=== PATIENT | female | born 1955 | race Caucasian/White ===

== ENCOUNTER 2018-11-19 10:43 | Day surgery (SDC) | payer OTHER ==
[2018-11-19] VITALS (23 sets, daily range): BP systolic 121–153; BP diastolic 54–70; PULSE 66–80; RESP 8–18; Ht 157.5 cm; Wt 80.3 kg
[~2018-11-19] VITALS: Ht 157.5 cm; Wt 80.3 kg
--- NOTE | 2018-11-19 06:11 | HPN ---
Date/Time of Note Date/Time of Note DATE: 11/19/18 TIME: 06:11 Interval H&P Admission Note Pt. seen H&P reviewed: No system changes JOSEPH MCNEIL MD November 19, 2018 06:11
--- NOTE | 2018-11-19 06:14 | OPR ---
Date/Time of Note Date/Time of Note DATE: 11/19/18 TIME: 06:11 Operative Report Procedure Date: November 19, 2018 Preoperative Diagnosis Right shoulder rotator cuff tear Postoperative Diagnosis 1. Right shoulder rotator cuff tear 2. Right shoulder acromioclavicular joint arthritis 3. Right shoulder impingement 4. Right shoulder labral tear with partial biceps tendon tear Operation/Procedure Performed 1. Right shoulder arthroscopic rotator cuff repair 2. Right shoulder arthroscopic distal clavicular excision 3. Right shoulder arthroscopic acromioplasty with coracoacromial ligament release 4. Right shoulder arthroscopic extensive debridement of glenohumeral joint Surgeon see signature line Dish Cloth Inspector Yevgeniy Katz MD Anesthesia Type: general Estimated Blood Loss: 0 - 10 ml's Transfusion none Specimen None Grafts/Implants See operative note Complications none Pt Condition Post Procedure: stable Disposition: PACU Procedure Description INSOLE AND HEEL STIFFENER SURGEON: Yevgeniy Katz MD was asked to be present at my request as a result of the complexity associated with this procedure including positioning of the extremities, manipulation of the arthroscope and assistance with suture management and implantation of suture anchors. In my opinion, the assistance offered by a instructor adjunct surgical technician is insufficient and Dr. Katz should be compensated for his time. PROCEDURE IN DETAIL: Following the administration of general anesthesia supplemented with a peripheral nerve block for postoperative pain control, the patient was examined under anesthesia. Examination of the right shoulder revealed significant stiffness with about 130 degrees of forward flexion and 80 degrees abduction. A gentle manipulation was then undertaken and passively she was able to be flexed up to about 150 degrees, abduction 110 degrees, external rotation 80 degrees and internal rotation 20 degrees. Several significant adhesions were noted to be released. The patient was then placed in the left lateral decubitus position. Sterile prep and drape was then undertaken of the right shoulder. Anterior and posterior glenohumeral portals were established. Glenohumeral arthroscopy revealed that the humeral and glenoid articular cartilage revealed some diffuse grade 2 changes and in the central portion of t he humerus there were grade 3 cartilage changes in an area measuring 2 x 2 cm. There was some mild softening in a generalized fashion.. The superior labrum was diffusely torn with extensive fraying that extended from 9:00 to the 3 o'clock position. The biceps had severe synovitis with subluxation and significant fraying. In addition, the biceps anchor was detached completely. The subscapularis was visualized and this was all with a solid attachment. No abnormalities are noted anteriorly with the exception of the severe synovitis which was actually in the notch itself. Further evaluation of the supraspinatus revealed complete tear of the supraspinatus measuring 1 x 2 cm. Some significant frayed tissue was also noted. Infraspinatus was normal. The superior labrum then debrided extensively from the 9:00 to the 3 o'clock position was undertaken down to stable tissue. Severe synovitis was also debrided down to stable tissue. The biceps tendon was also released and seen to retract. The severe synovitis in the anterior compartment was then debrided. The subacromial space was then entered and very severe bursal reactive tissue was noted. There was a thickened coracoacromial ligament, with a 5 to 7 mm acromial prominence noted, which extended medially as well into the acromioclavicular joint. The anterior acromion was then cleared of soft tissue and the coracoacromial ligament released. The acromion was then resected approximately 5 to 7 mm down to a flat surface. The outer surface of the rotator cuff was then inspected. The rotator cuff tear was noted to be complete and a debridement of this area was undertaken down to stable tissue in order to prepare for the repair. The subacromial space was then further evaluated medially. The acromioclavicular joint was then skeletonized and a significant inferior osteophyte was noted. The AC joint capsule was then opened and the distal clavicle was skeletonized for a distance of 10 mm. The nayely was then inserted and 10 mm of the distal clavicle were then excised. The rotator cuff repair was then undertaken. Specifically, a 5 mm, triple loaded titanium anchor was then inserted into the tuberosity. The sutures were then passed in a mattress fashion and tied using sliding, locking knots. A solid repair of the rotator cuff was completed. The joint was then thoroughly irrigated bony debris removed, the deep tissues were approximated using 4-0 Monocryl, followed by a sterile dressing. A sling was then applied. The patient was awakened and transported to the recovery room in stable condition. JOSEPH MCNEIL MD November 19, 2018 06:14
--- NOTE | 2018-11-19 11:18 | PREAC ---
Date/Time of Note Date/Time of Note DATE: 11/19/18 TIME: 11:17 Anesthesia Eval and Record Evaluation Time Pre-Procedure Interview DATE: 11/19/18 TIME: 11:17 Age 63 Sex female NPO: 8 hrs Preoperative diagnosis Right Shoulder Rotator Cuff Tear Planned procedure Right Shoulder Arthroscopy and Rotator Cuff repair Past Medical History Past Medical History: None Surgery & Anesthesia Issues No known issue Meds Anticoagulation: No Beta Jah within 24 hr: No Reason Beta Jah not given: Pt. not on B-Jah Current Medications Cefazolin Sodium/ Dextrose 50 ml @ 100 mls/hr PRE-OP ONCE IVPB ; Start 11/18/18 at 06:00; Stop 11/18/18 at 06:29; Status UNV Gabapentin (Neurontin) 300 mg PRE-OP ONCE PO ; Start 11/18/18 at 06:00; Stop 11/18/18 at 06:01; Status UNV Tranexamic Acid 100 ml @ 200 mls/hr Pre-op ONCE IVPB ; Start 11/18/18 at 06:00; Stop 11/18/18 at 06:29; Status UNV Dexamethasone (Decadron) 2 mg ONCE ONCE PO ; Start 11/18/18 at 06:00; Stop 11/18/18 at 06:01; Status UNV Meds reviewed: Yes Allergies Allergies Reviewed: Yes Labs/Studies Labs Reviewed: Reviewed by anesthesiologist test: N/A Studies: ECG (n/a), CXR (n/a) Pre-procedure Exam Airway: Adequate mouth opening, Adequate thyromental dist Mallampati: Mallampati II Teeth: Normal Lung: Normal Heart: Normal ASA Physical Status ASA physical status: 2 Emergency: None Planned Anesthetic General/MAC: ETT Nerve block: Brachial plexus (right) Planned Pain Management Single shot nerve block, Parenteral pain med Pre-operative Attestations Prior to commencing anesthesia and surgery, the patient was re-evaluated, there was verification of: *The patient's identity *The results of appropriate recent lab work and preoperative vital signs *The above evaluation not changing prior to induction *Anesthetic plan, risk benefits, alternative and complications discussed with patient/family; questions answered; patient/family understands, accepts and wi shes to proceed. JEREMIAS UP MD November 19, 2018 11:18
[2018-11-19] MEDS ORDERED: PROPOFOL 20 ML ONE (11:20)
[2018-11-19] MEDS ORDERED: FENTAnyl 50 MCG/ML VIAL ONE ×2 (11:20→14:19)
[2018-11-19] MEDS ORDERED: MIDAZOLAM 1 MG/ML 2 ML INJ ONE (11:20)
[2018-11-19] MEDS ORDERED: ROCURONIUM 50 MG INJ ONE (11:20)
[2018-11-19] MEDS ORDERED: ROPIVACAINE 0.5 % 30 ML VIAL ONE (11:20)
[2018-11-19] MEDS ORDERED: MEPERIDINE 25 MG INJ IV PRN (11:30)
[2018-11-19] MEDS ORDERED: OXYCODONE/ACETAMINOPHEN (5/325) TAB PO PRN (11:30)
[2018-11-19] MEDS ORDERED: LABETALOL HCL 20MG INJ IV PRN (11:30)
[2018-11-19] MEDS ORDERED: METOCLOPRAMIDE 10 MG INJ IV PRN (11:30)
[2018-11-19] MEDS ORDERED: ONDANSETRON 4 MG INJ IV PRN (11:30)
[2018-11-19] MEDS ORDERED: HYDROmorphONE 1 MG/5 ML IV SYRINGE IV PRN ×3 (11:30)
[2018-11-19] MEDS ORDERED: FENTAnyl 50 MCG/ML VIAL IV PRN ×3 (11:30)
[2018-11-19] MEDS ORDERED: EPHEDrine 25 MG/5 ML SYG IV PRN (11:30)
[2018-11-19] MEDS ORDERED: METH10TA5 PO (11:31)
[2018-11-19] MEDS ORDERED: METF500T24 PO (11:32)
[2018-11-19] MEDS ORDERED: ATOR40TA68 PO (11:32)
[2018-11-19] MEDS ORDERED: NOVO7030 SC (11:34)
[2018-11-19] MEDS ORDERED: TRANEXAMIC ACID 1GM/100ML(PMX) 100 ML IVPB ONE (12:00)
[2018-11-19] MEDS ORDERED: DEXAMETHASONE 2 MG TAB PO ONE (12:00)
[2018-11-19] MEDS ORDERED: CEFAZOLIN 2 GM/50 ML (PMX) 50 ML IVPB ONE (12:00)
[2018-11-19] MEDS ORDERED: GABAPENTIN 300 MG CAP PO ONE (12:00)
[2018-11-19] MEDS ORDERED: DIPHENHYDRAMINE 50 MG INJ ONE (12:53)
[2018-11-19] MEDS ORDERED: LABETALOL HCL 20MG INJ ONE (12:53)
[2018-11-19] MEDS ORDERED: ONDANSETRON 4 MG INJ ONE (12:59)
[2018-11-19] MEDS ORDERED: DEXAMETHASONE 4 MG/ML 5 ML INJ ONE (12:59)
[2018-11-19] MEDS ORDERED: METOCLOPRAMIDE 10 MG INJ ONE (12:59)
[2018-11-19] MEDS ORDERED: KETOROLAC 30 MG INJ ONE (12:59)
[2018-11-19] MEDS ORDERED: SUGAMMADEX SODIUM 200 MG/2 ML VIAL IV ONE (14:10)
--- NOTE | 2018-11-19 14:24 | PDOCDIS ---
Discharge Instructions DIAGNOSIS Discharge Diagnosis Rotator cuff tear CONDITION [id number] Patient Condition: [id number] Good HOME CARE INSTRUCTIONS: [id number] Diet Instructions: [id number] Regular ACTIVITY: [id number] Activity Restrictions: [id number] Rest between Activity Keep Limb Elevated [id number] Bathing Restrictions: [id number] Shower FOLLOW UP/APPOINTMENTS Follow-up Plan 2 weeks in the office SCHOOL/WORK RELEASE May return to School/Work with: With Restrictions School/Work Release Comment: 5 pound tabletop usage for 6 weeks JOSEPH MCNEIL MD November 19, 2018 14:24
--- NOTE | 2018-11-19 14:29 | PAC ---
Date/Time of Note Date/Time of Note DATE: 11/19/18 TIME: 14:29 Post-Anesthesia Notes Post-Anesthesia Note Last documented vital signs Vital Signs Date Temp Pulse Resp B/P (MAP) Pulse Ox O2 O2 Flow FiO2 Time Delivery Rate 11/19/18 97.5 80 16 143/70 98 Room Air 14:34 (94) Activity: WNL Respiratory function: WNL Cardiovascular function: WNL Mental status: Baseline Pain reasonably controlled: Yes Hydration appropriate: Yes Nausea/Vomiting absent: Yes JEREMIAS UP MD November 19, 2018 14:29
== END 2018-11-19 17:51 | disposition home or self-care (01) ==
LOC: SDS 10:43
PROVIDERS: ATTEND Orthopaedic Surgery
DX: M75.101 Unspecified rotator cuff tear or rupture of right shoulder, not specified as traumatic (principal); M19.011 Primary osteoarthritis, right shoulder; M75.41 Impingement syndrome of right shoulder; S43.491A Other sprain of right shoulder joint, initial encounter; X58.XXXA Exposure to other specified factors, initial encounter; E11.9 Type 2 diabetes mellitus without complications; E03.9 Hypothyroidism, unspecified; E78.00 Pure hypercholesterolemia, unspecified; Z79.4 Long term (current) use of insulin; Z79.84 Long term (current) use of oral hypoglycemic drugs
CPT/HCPCS: 29823; 29824; 29826; 29827; 82962; J0690; J1100; J1200; J1885; J2250; J2405; J2765; J2795; J3010

== ENCOUNTER 2018-12-31 09:05 | Day surgery (SDC) | payer OTHER ==
[~2018-12-31] VITALS: Ht 157.5 cm; Wt 82.6 kg
[2018-12-31] VITALS (14 sets, daily range): BP systolic 131–159; BP diastolic 64–77; PULSE 75–86; RESP 11–16; Ht 157.5 cm; Wt 82.6 kg
--- NOTE | 2018-12-31 06:07 | HPN ---
Date/Time of Note Date/Time of Note DATE: 12/31/18 TIME: 06:07 Interval H&P Admission Note Pt. seen H&P reviewed: No system changes JOSEPH MCNEIL MD Dec 31, 2018 06:07
--- NOTE | 2018-12-31 06:11 | OPR ---
Date/Time of Note Date/Time of Note DATE: 12/31/18 TIME: 06:07 Operative Report Procedure Date: Dec 31, 2018 Preoperative Diagnosis Right shoulder loose suture anchor Postoperative Diagnosis 1. Right shoulder loose suture anchor 2. right shoulder synovitis Operation/Procedure Performed 1. Right shoulder removal of loose anchor with debridement Surgeon see signature line Kitchen And Bath Designer Javid Lowry MD Anesthesia Type: general Estimated Blood Loss: minimal Transfusion none Specimen None Grafts/Implants none Complications none Pt Condition Post Procedure: stable Disposition: PACU Procedure Description GRAPE CRUSHER SURGEON: Javid Lowry MD was asked to be present at my request as a result of the complexity associated with this procedure including positioning of the extremities, manipulation of the arthroscope and assistance with suture management and implantation of suture anchors. In my opinion, the assistance offered by a cardiovascular surgical tech is insufficient and Dr. Lowry should be compensated for his time. PROCEDURE IN DETAIL: Following the administration of general anesthesia supplemented with a peripheral nerve block for postoperative pain control, the patient was examined under anesthesia. Examination of the right shoulder revealed significant some stiffness with about 140 degrees of forward flexion and 100 degrees abduction. There was some mild crepitus in the subacromial space consistent with the loose suture anchor that had been noted radiographically. The patient was then placed in the left lateral decubitus position. Sterile prep and drape was then undertaken of the right shoulder. Anterior and posterior glenohumeral portals were established through the prior portal sites. Glenohumeral arthroscopy revealed that the humeral and glenoid articular cartilage revealed some diffuse grade 2 changes and in the central portion of the humerus there were grade 3 cartilage changes in an area measuring 2 x 2 cm. There was some mild softening in a generalized fashion. The superior labrum was diffusely torn as previously documented. There was evidence of the prior biceps release as well. In addition, the suture anchor that had been noted to be loose radiographically was then identified through the bicipital groove. The subscapularis was visualized and this was all with a solid attachment. No abnormalities are noted. The infraspinatus was normal. The subacromial space was then entered and very severe bursal reactive tissue was noted and this was resected. The outer surface of the rotator cuff was then inspected. The prior rotator cuff repair appeared solid with significant healing over the area. The sutures were seen to be intact from the extra-articular visualization. The joint was then entered once again, and the suture anchor was then delivered into the bicipital groove area. A second anterior portal was then created and pulling traction on the anchor, the sutures were then cut and the anchor delivered. The inner surface of the rotator cuff appeared intact. Furthermore, the subacromial space was entered once again and the rotator cuff was confirmed to be intact both to visualization and probing. The joint was then thoroughly irrigated bony debris removed, the skin approximated using 4-0 Monocryl, followed by a sterile dressing. A sling was then applied. The patient was awakened and transported to the recovery room in stable condition. JOSEPH MCNEIL MD Dec 31, 2018 06:11
[~2018-12-31 09:05] MED LIST: ATOR40TA68 PO; CEFAZOLIN 2 GM/50 ML (PMX) 50 ML IVPB ONE; DEXAMETHASONE 2 MG TAB PO ONE; GABAPENTIN 300 MG CAP PO ONE; METF500T24 PO; METH10TA5 PO; NOVO7030 SC
[2018-12-31] MEDS ORDERED: LACTATED RINGER'S 1,000 ML IV SCH (09:30)
[2018-12-31] MEDS ORDERED: METF500T24 PO (09:46)
[2018-12-31] MEDS ORDERED: METH10TA5 PO (09:46)
[2018-12-31] MEDS ORDERED: ATOR40TA68 PO (09:46)
[2018-12-31] MEDS ORDERED: NOVO7030 SC (09:47)
[2018-12-31] MEDS ORDERED: TRANEXAMIC ACID 1 GM/100 ML (PMX) ONE (11:27)
[2018-12-31] MEDS ORDERED: PROPOFOL 20 ML ONE (11:27)
[2018-12-31] MEDS ORDERED: LIDOCAINE 2% (SDV) 5 ML INJ ONE (11:27)
[2018-12-31] MEDS ORDERED: MIDAZOLAM 1 MG/ML 2 ML INJ ONE (11:28)
[2018-12-31] MEDS ORDERED: ROPIVACAINE 0.5 % 30 ML VIAL ONE (11:28)
[2018-12-31] MEDS ORDERED: CEFAZOLIN 1 GM INJ ONE (11:30)
[2018-12-31] MEDS ORDERED: ONDANSETRON 4 MG INJ ONE (11:30)
[2018-12-31] MEDS ORDERED: METOCLOPRAMIDE 10 MG INJ ONE (11:30)
--- NOTE | 2018-12-31 11:47 | PREAC ---
Date/Time of Note Date/Time of Note DATE: 12/31/18 TIME: 11:44 Anesthesia Eval and Record Evaluation Time Pre-Procedure Interview DATE: 12/31/18 TIME: 11:44 Age 63 Sex female NPO: 8 hrs Preoperative diagnosis Right rotator cuff tear S/P repair with loose anchor Planned procedure Operative arthroscopy, rotator cuff repaie, removal of loose anchor Past Medical History Past Medical History: Includes Cardio: Dyslipidemia Endo: Diabetes, Hyperthyroid GI: Obesity Surgery & Anesthesia Issues No known issue Meds Anticoagulation: No Beta Jah within 24 hr: No Reason Beta Jah not given: Pt. not on B-Jah Reported Medications Insulin Isophan/Regular (Humulin 70/30) 100 Units/Ml Susp, 15 UNIT SC HS, EA 12/31/18 Metformin Hcl* (Metformin Hcl*) 500 Mg Tablet, 500 MG PO WITH BREAKFAST, #30 TAB 12/31/18 Methimazole* (Methimazole*) 10 Mg Tablet, 25 MG PO DAILY, TAB 12/31/18 Atorvastatin* (Atorvastatin*) 40 Mg Tablet, 40 MG PO QHS, #30 TAB 12/31/18 Discontinued Reported Medications Insulin Isophan/Regular (Humulin 70/30) 100 Units/Ml Susp, 5 UNIT SC HS, EA 11/19/18 Metformin Hcl* (Metformin Hcl*) 500 Mg Tablet, 500 MG PO WITH BREAKFAST DINNE, #60 TAB 11/19/18 Atorvastatin* (Atorvastatin*) 40 Mg Tablet, 40 MG PO QHS, #30 TAB 11/19/18 Methimazole* (Methimazole*) 10 Mg Tablet, 30 MG PO DAILY, TAB 11/19/18 Current Medications Lactated Ringer's 1,000 ml @ 0 mls/hr Q0M IV Last administered on 12/31/18at 11:02; Admin Dose 75 MLS/HR; Start 12/31/18 at 09:30; Stop 12/31/18 at 23:59 Meds reviewed: Yes Allergies Coded Allergies: No Known Allergy (Unverified , 12/31/18) Allergies Reviewed: Yes Labs/Studies Labs Reviewed: Reviewed by anesthesiologist test: N/A Pre-procedure Exam Last vitals Vital Signs Date Temp Pulse Resp B/P (MAP) Pulse Ox O2 O2 Flow FiO2 Time Delivery Rate 12/31/18 97.7 75 16 140/64 99 Room Air 11:22 (89) Airway: Adequate mouth opening Mallampati: Mallampati II Teeth: Normal Lung: Normal Heart: Normal ASA Physical Status ASA physical status: 3 Emergency: None Planned Anesthetic General/MAC: ETT, LMA Planned Pain Management Single shot nerve block, Parenteral pain med Pre-operative Attestations Prior to commencing anesthesia and surgery, the patient was re-evaluated, there was verification of: *The patient's identity *The results of appropriate recent lab work and preoperative vital signs *The above evaluation not changing prior to induction *Anesthetic plan, risk benefits, alternative and complications discussed with patient/family; questions answered; patient/family understands, accepts and wishes to proceed. Administrative Assistant Office Manager used PAMELA KHALIL MD Dec 31, 2018 11:47
[2018-12-31] MEDS ORDERED: MEPERIDINE 25 MG INJ IV PRN (13:30)
[2018-12-31] MEDS ORDERED: hydrALAzine 20 MG INJ IV PRN (13:30)
[2018-12-31] MEDS ORDERED: MIDAZOLAM 1 MG/ML 2 ML INJ IV PRN (13:30)
[2018-12-31] MEDS ORDERED: ONDANSETRON 4 MG INJ IV PRN (13:30)
[2018-12-31] MEDS ORDERED: HYDROmorphONE 1 MG/5 ML IV SYRINGE IV PRN ×3 (13:30)
[2018-12-31] MEDS ORDERED: DIPHENHYDRAMINE 50 MG INJ IV PRN (13:30)
[2018-12-31] MEDS ORDERED: OXYCODONE/ACETAMINOPHEN (5/325) TAB PO PRN ×2 (13:30)
[2018-12-31] MEDS ORDERED: EPHEDrine 25 MG/5 ML SYG IV PRN (13:30)
[2018-12-31] MEDS ORDERED: LABETALOL HCL 20MG INJ IV PRN (13:30)
[2018-12-31] MEDS ORDERED: FENTAnyl 50 MCG/ML VIAL IV PRN ×3 (13:30)
[2018-12-31] MEDS ORDERED: METOCLOPRAMIDE 10 MG INJ IV PRN (13:30)
--- NOTE | 2018-12-31 13:44 | PDOCDIS ---
Discharge Instructions DIAGNOSIS Discharge Diagnosis Rotator cuff tear CONDITION [id number] Patient Condition: [id number] Good HOME CARE INSTRUCTIONS: [id number] Diet Instructions: Iitho6z Regular ACTIVITY: [id number] Activity Restrictions: Oalko2e Rest between Activity Keep Limb Elevated [id number] Bathing Restrictions: [id number] Shower FOLLOW UP/APPOINTMENTS Follow-up Plan 2 weeks in the office SCHOOL/WORK RELEASE May return to School/Work with: With Restrictions School/Work Release Comment: 5 pound tabletop usage for 6 weeks JOSEPH MCNEIL MD Dec 31, 2018 13:44
--- NOTE | 2018-12-31 15:38 | PAC ---
Date/Time of Note Date/Time of Note DATE: 12/31/18 TIME: 15:38 Post-Anesthesia Notes Post-Anesthesia Note Last documented vital signs Vital Signs Date Temp Pulse Resp B/P (MAP) Pulse Ox O2 O2 Flow FiO2 Time Delivery Rate 12/31/18 97.7 75 16 140/64 99 Room Air 11:22 (89) Activity: WNL Respiratory function: WNL Cardiovascular function: WNL Mental status: Baseline Pain reasonably controlled: Yes Hydration appropriate: Yes Nausea/Vomiting absent: Yes Comments BT: 98.7 PAMELA KHALIL MD Dec 31, 2018 15:38
== END 2018-12-31 16:15 | disposition home or self-care (01) ==
LOC: SDS 09:05
PROVIDERS: ATTEND Orthopaedic Surgery
DX: T84.038A Mechanical loosening of other internal prosthetic joint, initial encounter (principal); M65.811 Other synovitis and tenosynovitis, right shoulder; Y83.8 Other surgical procedures as the cause of abnormal reaction of the patient, or of later complication, without mention of misadventure at the time of the procedure; Y79.3 Surgical instruments, materials and orthopedic devices (including sutures) associated with adverse incidents; E78.5 Hyperlipidemia, unspecified; E11.9 Type 2 diabetes mellitus without complications; Z79.84 Long term (current) use of oral hypoglycemic drugs; Z79.4 Long term (current) use of insulin
CPT/HCPCS: 29822; 82962; J0690; J2250; J2405; J2765; J2795